=== PATIENT | female | born 1985 | race Two or more races ===

== ENCOUNTER 2016-04-12 17:30 | Emergency (ER) | payer OTHER ==
[2016-04-12] MEDS ORDERED: IBUPROFEN 600 MG TABLET PO ONE (17:48)
[2016-04-12] MEDS ORDERED: ONDANSETRON 4 MG TAB.RAPDIS PO ONE (17:48)
--- NOTE | 2016-04-12 17:49 | ER Document Report ---
ED Medical Screen (RME) - General Chief Complaint: Vomiting/Diarrhea Stated Complaint: FEVER/COUGH Mode of Arrival: Ambulatory Information source: Patient Notes: Patient with nausea and vomiting for the past 3 days with diarrhea that started today. Fever of 103 at home. Patient with cough. Patient's daughter presents with fever and cough as well. hx: Asthma I have greeted and performed a rapid initial assessment of this patient. A comprehensive ED assessment and evaluation of the patient, analysis of test results and completion of the medical decision making process will be conducted by additional ED providers. TRAVEL OUTSIDE OF THE [place] IN LAST 30 DAYS: No - Related Data Allergies/Adverse Reactions: No Known Allergies Allergy (Verified 04/12/16 17:39) Past Medical History - Social History Chew tobacco use (# tins/day): No Frequency of alcohol use: None Drug Abuse: None Renal/ Medical History: Denies: Hx Peritoneal Dialysis Physical Exam - General General appearance: Appears well, Alert In distress: None - Neurological Gabriela Coma Scale Eye Opening: Spontaneous [place] Coma Scale Verbal: Oriented Gabriela Coma Scale Motor: Obeys Commands Gabriela Coma Scale Total: 15
--- NOTE | 2016-04-12 20:44 | ER Document Report ---
ED Flu Like - General Chief Complaint: Vomiting/Diarrhea Stated Complaint: FEVER/COUGH Mode of Arrival: Ambulatory Information source: Patient TRAVEL OUTSIDE OF THE [place] IN LAST 30 DAYS: No - HPI Onset: Other - 2 DAYS AGO Timing/Duration: Sudden Quality of pain: Achy, Dull Severity: Moderate Recent travel: No: Domestic, International, Air, Bus, Car, Train [place] exposure: No Tick/Insect bite: No: Confirmed, Suspected, Camping/Hiking Shortness of breath: Mild Associated symptoms: Body/muscle aches, Chills, Productive cough, Diarrhea, Fever, Nausea, Vomiting, Shortness of breath, Sweating. denies: Leg swelling Similar symptoms previously: Yes - NOT RECENT Recently seen / treated by doctor: No - Related Data Allergies/Adverse Reactions: No Known Allergies Allergy (Verified 04/12/16 17:39) Past Medical History - General Information source: Patient - Social History Smoking Status: Unknown if Ever Smoked Chew tobacco use (# tins/day): No Frequency of alcohol use: None Drug Abuse: None Lives with: Family Family History: Reviewed & Not Pertinent Patient has suicidal ideation: No Patient has homicidal ideation: No - Past Medical History Cardiac Medical History: Reports: None Pulmonary Medical History: Reports: None EENT Medical History: Reports: None Neurological Medical History: Reports: None Endocrine Medical History: Reports: None Renal/ Medical History: Reports: None. Denies: Hx Peritoneal Dialysis Malignancy Medical History: Reports: None GI Medical History: Reports: None Musculoskeltal Medical History: Reports None Psychiatric Medical History: Reports: None Past Surgical History: Reports: Hx Section - 3 - Immunizations Hx Diphtheria, Pertussis, Tetanus Vaccination: Yes Review of Systems - Review of Systems Constitutional: See HPI EENT: No symptoms reported Cardiovascular: No symptoms reported Respiratory: See HPI Gastrointestinal: See HPI Genitourinary: No symptoms reported Female Genitourinary: No symptoms reported Musculoskeletal: See HPI Skin: No symptoms reported Neurological/Psychological: See HPI, Headaches Physical Exam - Vital signs Vitals: Temp Pulse Resp BP Pulse Ox 100.4 F 95 16 121/88 H 97 04/12/16 17:35 04/12/16 17:35 04/12/16 17:35 04/12/16 17:35 04/12/16 17:35 Interpretation: Febrile. No: Tachycardic, Tachypneic - General General appearance: Appears well, Alert In distress: None - HEENT Head: Normocephalic Eyes: Normal Conjunctiva: Normal Ears: Normal Nasal: Normal Mouth/Lips: Normal Mucous membranes: Normal Pharynx: Normal Neck: Normal - Respiratory Respiratory status: No respiratory distress Breath sounds: Normal - Cardiovascular Rhythm: Regular Heart sounds: Normal auscultation Murmur: No - Abdominal Inspection: Normal - Back Back: Normal - Extremities General upper extremity: Normal inspection General lower extremity: Normal inspection - Neurological Neuro grossly intact: Yes Cognition: Normal Orientation: AAOx4 - Psychological Associated symptoms: Normal affect, Normal mood - Skin Skin Temperature: Warm Skin Moisture: Dry Skin Color: Normal Skin Turgor: Elastic Course - Vital Signs Vital signs: Temp Pulse Resp BP Pulse Ox 100.4 F 95 16 121/88 H 97 04/12/16 17:35 04/12/16 17:35 04/12/16 19:49 04/12/16 17:35 04/12/16 17:35 - Diagnostic Test Radiology reviewed: Image reviewed, Reports reviewed Discharge - Discharge Clinical Impression: Influenza Condition: Stable Disposition: HOME, SELF-CARE Instructions: Antinausea Medication ([facility]), Influenza ([facility]) 7210-3138, Oral Narcotic Medication ([facility]), Acetaminophen Additional Instructions: REST, DRINK PLENTY OF FLUIDS. TAKE TYLENOL FOR FEVER CONTROL IF NEEDED. YOU MAY TAKE ZOFRAN FOR NAUSEA CONTROL IF NEEDED. YOU MAY TAKE NORCO IF NEEDED FOR PAIN RELIEF OR COUGH SUPPRESSION. FOLLOW UP IF NOT IMPROVING IN 48 HOURS, OR SOONER IF YOU GET WORSE ANY TIME. Prescriptions: Hydrocodone/Acetaminophen [Mchenry 5-325 mg Tablet] 1 tab PO Q4HP PRN #14 tablet PRN Reason: For Pain or Cough Ondansetron [Zofran Odt 4 mg Tablet] 1 - 2 tab PO Q4H #10 tab.rapdis Forms: Return to Work
[2016-04-12 21:03] VITALS: BP 100/78
== END 2016-04-12 21:03 | disposition home or self-care (01) ==
LOC: ER 17:30
DX: J11.1 Influenza due to unidentified influenza virus with other respiratory manifestations (principal); R11.10 Vomiting, unspecified; R50.9 Fever, unspecified; M79.1 Myalgia
CPT/HCPCS: 99284; 71020; S0119